=== PATIENT | female | born 1975 | race Caucasian/White ===

== ENCOUNTER 2016-12-14 14:18 | Emergency (ER) | payer MEDICARE, OTHER ==
--- NOTE | 2016-12-14 14:48 | ED Physician Documentation ---
General Adult - HISTORIAN Historian: patient - HPI Stated Complaint: R flank pain, chronic Chief Complaint: General Adult Timing: still present Severity: moderate Further Comments: yes (Pt is a 41 yo female with R flank pain. Pt has been to this ER several times in the past with same complaint. Pt has hx kidney stones. Pt has had cholecystectomy. Pt has had normal bm's. She has had nausea. No fever.) - ROS CONST: no problems EYES/ENT: none CVS/RESP: none GI/: abdominal pain, nausea MS/SKIN/LYMPH: none - PAST HX Past History: kidney stones, other (Anxiety, Bipolar d/o, GERD, PUD, HTN, ) Surgeries/Procedures: BTL, cholecystectomy, other (appendectomy, tonsillectomy, ortho surgery) Allergies/Adverse Reactions: Allergies Allergy/AdvReac Type Severity Reaction Status Date / Time Penicillins Allergy Unknown Anaphylaxis Verified 12/14/16 14:36 bee venom (honey bee) Allergy Anaphylaxis Verified 12/14/16 14:36 bupropion HCl Allergy Verified 12/14/16 14:36 [From Wellbutrin] erythromycin base Allergy Vomiting Verified 12/14/16 14:36 Home Medications: Ambulatory Orders Medication Instructions Recorded Diazepam [Valium] 5 mg PO PRN PRN 04/25/16 Tamsulosin HCl [Flomax] 0.4 mg PO [id number] 05/27/16 Potassium Chloride 10 meq PO DAILY u2 05/29/16 - SOCIAL HX Smoking History: cigarettes - FAMILY HX Family History: No - VITAL SIGNS Vital Signs: Vital Signs Temp Pulse Resp BP Pulse Ox 118/68 08/05/16 13:30 - REVIEWED ASSESSMENTS Nursing Assessment Reviewed: Yes Vitals Reviewed: Yes Progress - Progress Progress: Pt left AMA. NS 1 L IVF was ordered, but pt left before receiving this. Pt did get zofran 4 mg IV. U/a showed no blood, 1+ protein. chronic R abd pain, pt left ama. General Adult Physical Exam - PHYSICAL EXAM GENERAL APPEARANCE: mild distress EENT: pharynx normal NECK: normal inspection, supple RESPIRATORY: no resp distress, chest non-tender, breath sounds normal CVS: reg rate & rhythm, heart sounds normal ABDOMEN: soft, no organomegaly, normal bowel sounds, tenderness (R abd tenderness) BACK: normal inspection, CVA tenderness (R) SKIN: warm/dry, normal color EXTREMITIES: non-tender, normal range of motion, no evidence of injury NEURO: oriented X3, motor nml, sensation nml Discharge Clincal Impression: R abdominal pain Home Medications: Ambulatory Orders Diazepam [Valium] 5 mg PO PRN PRN 04/25/16 Tamsulosin HCl [Flomax] 0.4 mg PO [id number] 05/27/16 Potassium Chloride 10 meq PO DAILY u2 05/29/16 Condition: Stable Disposition: AGAINST MEDICAL ADVICE Decision to Admit: NO Decision Time: 15:25
[2016-12-14 14:51] VITALS: BP 116/89
[2016-12-14] MEDS ORDERED: 0.9 % SODIUM CHLORIDE 1,000 ML IV ONE (14:55)
[2016-12-14] MEDS ORDERED: ONDANSETRON HCL/PF 4 MG/ 2ML VIAL IVP ONE (14:56)
[2016-12-14 15:12] LABS: BASOPHILS % 0.3 (0.0-1.5); EOSINOPHILS % 2.3 % (0.0-6.8); LYMPHOCYTES # 2.9 # k/uL (0.6-4.0); MEAN CORPUSCULAR HEMOGLOBIN 33.4 pg (28.0-34.0); MONOCYTES # 0.4 # k/uL (0.0-0.9); MONOCYTES % 4.6 % (0.0-11.0); NEUTROPHILS # 5.7 # k/uL (1.4-7.7)
[2016-12-14 15:30] LABS: APPEARANCE,URINE CLEAR (CLEAR); COLOR,URINE AMBER (YELLOW); OCCULT BLOOD,URINE NEGATIVE (NEGATIVE); PH URINE 5.5 (5.0 - 8.0); UROBILINOGEN URINE 0.2 Eu (0.2-1.0)
[2016-12-14 15:33] LABS: eGFR (African) > 60; eGFR (Non-African) > 60
== END 2016-12-14 15:26 | disposition left against medical advice (07) ==
LOC: ED 14:18
DX: R10.9 Unspecified abdominal pain (principal)
CPT/HCPCS: 80053; 81002; 82150; 85025; 96374; 99283; S1016